=== PATIENT | male | born 1965 | race Caucasian/White ===

== ENCOUNTER 2023-10-15 10:33 | Emergency (ER) | payer BC, SELFPAY ==
[2023-10-15 10:43] VITALS: BP 139/89
--- NOTE | 2023-10-15 11:05 | ED.GENMED ---
History of Present Illness
<Emy Vasquez PA-C - Last Filed: 10/15/23 12:57>
General
Chief Complaint: DVT/Possible Blood Clot
Source: patient
Exam Limitations: none
Time Seen by Provider: 10/15/23 11:05
Nursing documentation reviewed up to this point in time: agreed with
Travel History
Have you had any contact with someone who has COVID-19?: No
Do you have any symptoms of coronavirus? Fever > 100 degrees, chills, cough, shortness of breath, sore throat, loss of taste or smell, muscle aches, or headache?: No
History of Present Illness
History of Present Illness:
This is a 58-year-old male with a past medical history of prediabetes, hypertension presenting emergency department today with right calf pain and redness. Patient states that this started a few days ago. Patient states that he first noticed it
when he noticed the pain when he was walking but than this morning, when he was showering, he looked down and noticed that his leg was red. Patient denies any fevers or chills, abdominal pain, nausea. Patient denies any recent long distance travel
but does commute to [place] every day for work. Patient denies previous history of blood clots. Patient denies any swelling, hx of smoking. Patient denies any exposure to any allergens�denies any shortness of breath, chest pain, dysphagia.
Past History
<Emy Vasquez PA-C - Last Filed: 10/15/23 12:57>
Past History
ED Past Medical History: GERD and Other (Pancreatitis, scoliosis); Negative HTN, Hypercholesterolemia or IDDM
ED Past Surgical History: Orthopedic (Pascual rods/scoliosis surgery)
Social History
Tobacco: Non-smoker
Alcohol: Occasional
Drug: None
Personal:
Living: with family
Employment: Employed
Review of Systems
<Emy Vasquez PA-C - Last Filed: 10/15/23 12:57>
Review of Systems
All Other Systems: ROS reviewed and negative except as documented in HPI and ROS
Phy Exam
<Emy Vasquez PA-C - Last Filed: 10/15/23 12:57>
Physical Exam
Physical Exam:
Vitals: Patient's vitals are stable, patient is afebrile
General: Patient is well appearing and in no acute distress; non-toxic
Skin: There is a erythematous macular rash extending from distal medial calf to the anterior aspect, it is hot to the touch
Head: Normocephalic, atraumatic
Eyes: Sclera non-icteric. EOMs intact.
Cardiac: Regular rate
Peripheral Vascular: Negative Homans' sign bilaterally, 2+ dorsalis pedis pulses bilaterally, no lower extremity swelling
Pulm: Normal respiratory effort
Musculoskeletal: No tenderness palpation of the bilateral lower extremities
Neuro: CN II-XII intact, no focal neurologic deficits.
Psychiatric: Appropriate mood and affect.
Course
<Emy Vasquez PA-C - Last Filed: 10/15/23 12:57>
Orders/Labs/Results
Orders:
Orders
10/15/23 11:12
US Periph Venous LOWER Ext RT Urgent
Comment:
Reason For Exam: right lower extremity swelling/edema
Vital Signs
Initial and Last Documented VS:
Initial Vital Signs
Temp Pulse Resp BP Pulse Ox
98.4 F 95 18 139/89 96
10/15/23 10:43 10/15/23 10:43 10/15/23 10:43 10/15/23 10:43 10/15/23 10:43
Last Documented Vital Signs
Temp Pulse Resp BP Pulse Ox
98.4 F 95 18 139/89 96
10/15/23 10:43 10/15/23 10:43 10/15/23 10:43 10/15/23 10:43 10/15/23 10:43
<Tyrone Tenorio, - Last Filed: 10/15/23 13:39>
Orders/Labs/Results
Orders:
Orders
10/15/23 11:12
US Periph Venous LOWER Ext RT Urgent
Comment:
Reason For Exam: right lower extremity swelling/edema
Vital Signs
Initial and Last Documented VS:
Initial Vital Signs
Temp Pulse Resp BP Pulse Ox
98.4 F 95 18 139/89 96
10/15/23 10:43 10/15/23 10:43 10/15/23 10:43 10/15/23 10:43 10/15/23 10:43
Last Documented Vital Signs
Temp Pulse Resp BP Pulse Ox
98.4 F 95 18 139/89 96
10/15/23 10:43 10/15/23 10:43 10/15/23 10:43 10/15/23 10:43 10/15/23 10:43
<Emy Vasquez PA-C - Last Filed: 10/15/23 12:57>
MDM/Problems Addressed
Differential Diagnosis Includes:
Differentials include cellulitis, erysipelas, DVT, contact dermatitis, acute arterial occlusion,
MDM/Problems Addressed:
Rate lower extremity rash and pain
Chronic conditions affecting care: HTN
Acute Exacerbation and/or Progression of Chronic Illness:
n/a
<Emy Vasquez PA-C - Last Filed: 10/15/23 12:57>
*Pulse Oximetry
Patient hypoxic: no
*Critical Care Note
Total Time (30-74mins, 75-104mins- exclusive of procedures): Not Applicable
Data Reviewed
Review of Other/Old Records Reveals: Records (Reviewed ER physician mentation from 06/22/2020)
Source: patient and records
Further Testing Considered But Not Given:
Considered labs however patient is well-appearing, his vitals are stable, he is afebrile, has no other associated symptoms
<Emy Vasquez PA-C - Last Filed: 10/15/23 12:57>
Patient Management
Escalation/DeEscalation of care consider admission/obs:
This is a 58-year-old male with a past medical history of prediabetes, hypertension presenting emergency department today with right calf pain and redness. Patient was originally seen by urgent care today but was sent to the emergency department
for an ultrasound. Ultrasound study here negative for DVT. History and physical exam consistent with cellulitis. Patient stable for discharge on course of Keflex. Return precautions given.
ED Attending Note
<Emy Vasquez PA-C - Last Filed: 10/15/23 12:57>
-
Portions of this chart may have been created with voice recognition software.� Occasional wrong word or��sound alike� substitutions may have occurred due to the inherent limitations of voice recognition software.
<Tyrone Tenorio DO - Last Filed: 10/15/23 13:39>
ED Attending Note
Patient seen and examined by attending physician: Yes
I performed a history and physical exam of patient and discussed management with resident, I reviewed resident's note and agree with documented findings and plan of care.: Yes
ED Attending Note:
I have reviewed and agree with history and treatment plan by Emy Vasquez. My exam revealed 58-year-old male with right lower leg erythema, suspicious for cellulitis. Do not suspect TEN. ultrasound negative for DVT. Will start on Keflex.
Discharge Plan
Departure
Patient Disposition: Home (Routine Discharge)
Date of Disposition: 10/15/23
Time of Disposition: 12:32
Patient with high blood pressure during this ER visit?: Yes
Condition: Good
Discharge Problem:
Cellulitis
Instructions: Cellulitis (Skin Infection), Adult (DC), BLOOD PRESSURE
Prescriptions:
New
cephalexin 500 mg capsule
500 mg PO Q6H 7 Days Qty: 28 0RF
No Action
duloxetine 60 MG capsule,delayed release(DR/EC)
60 mg PO DAILY
oxycodone-acetaminophen [Endocet] 1 EACH tablet
1 ea PO QIDPRN PRN (Reason: moderate pain) Qty: 14 0RF
Referrals:
Justice Luis, DO [Family Provider] -
Activity Restrictions/Additional Instructions:
Please keep skin clean and well moisturized.
Please return should your infection not start to improve within the coming days.
PLEASE RETURN TO THE EMERGENCY DEPARTMENT SHOULD YOU EXPERIENCE RAPID EXPANSION OF YOUR RASH, FEVERS OR CHILLS, CHEST PAIN, SHORTNESS OF BREATH, INCREASING PAIN, NAUSEA OR VOMITING.
Interventions
Interventions:
*Risk Screen - Suicide Last Done: 10/15/23 10:43
*General Assessment Last Done: 10/15/23 10:43
*Neglect/Abuse Screening Last Done: 10/15/23 10:43
ED- Fall Risk Assessment Last Done: 10/15/23 11:32
*ED COVID-19 Vaccine History Last Done: 10/15/23 10:43
*Nursing Disposition Last Done: 10/15/23 12:41
ED- Cardiac Assessment Last Done: 10/15/23 11:31
ED- Pulmonary Assessment Last Done: 10/15/23 11:31
ED-Peripheral Vascular Assessment Last Done: 10/15/23 11:31
ED-Skin Assessment Last Done: 10/15/23 11:31
Discharge Date and Time
Discharge Date/Time: 10/15/23 12:41
Print Language: JORDANIAN
== END 2023-10-15 12:41 | disposition home or self-care (01) ==
LOC: EMR 10:33
PROVIDERS: EMERGENCY PHYSICIAN Emergency Medicine; FAMILY PHYSICIAN Family Medicine
DX: L03.115 Cellulitis of right lower limb (principal); M79.661 Pain in right lower leg; R73.03 Prediabetes; I10 Essential (primary) hypertension; K21.9 Gastro-esophageal reflux disease without esophagitis; M41.9 Scoliosis, unspecified; I45.10 Unspecified right bundle-branch block
CPT/HCPCS: 99284; 93971

== ENCOUNTER 2024-06-30 06:29 | Day surgery (SDC) | payer BC, SELFPAY ==
[2024-06-30 11:12] VITALS: BMI 37.2
[2024-06-30 11:13] VITALS: BMI 37.2
[2024-06-30 11:15] LABS: Glucose - Point of Care 98 mg/dl (70-99)
[2024-06-30 11:16] VITALS: BP 122/73
[2024-06-30] MEDS: AKTEN OPHTHALMIC GEL 1 ML OPHTH (11:33)
[2024-06-30] MEDS: MYDRIACYL 1 DROP OPHTH (11:33)
[2024-06-30] MEDS: CYCLOGYL 1% EYE DROPS 1 DROP OPHTH (11:34)
[2024-06-30] MEDS: PRED FORTE 1% EYE DROPS 1 DROP OPHTH (11:34)
[2024-06-30] MEDS: NEO-SYNEPHRINE 2.5% OPH SOL. 1 DROP OPHTH (11:34)
[2024-06-30] MEDS: ALCAINE 0.5% EYE DROPS 1 DROP OPHTH (11:34)
[2024-06-30] MEDS: POLYTRIM OPHTHALMIC SOLUTION 1 DROP OPHTH (11:34)
[2024-06-30 14:00] VITALS: BP 107/69
== END 2024-06-30 14:28 | disposition home or self-care (01) ==
LOC: SDS 06:29
PROVIDERS: ATTENDING PHYSICIAN Ophthalmology
PROC: 08RK3JZ Replacement of Left Lens with Synthetic Substitute, Percutaneous Approach (ICD-10-PCS; 2024-06-30)
DX: H25.812 Combined forms of age-related cataract, left eye (principal)
CPT/HCPCS: 66984; 82962

== ENCOUNTER 2024-07-14 06:33 | Day surgery (SDC) | payer BC, SELFPAY ==
[2024-07-14 06:57] VITALS: BMI 36.3
[2024-07-14 06:58] VITALS: BMI 36.3
[2024-07-14 07:05] VITALS: BP 126/78
[2024-07-14] MEDS: ALCAINE 0.5% EYE DROPS 1 DROP OPHTH (07:20)
[2024-07-14] MEDS: PRED FORTE 1% EYE DROPS 1 DROP OPHTH (07:21)
[2024-07-14] MEDS: POLYTRIM OPHTHALMIC SOLUTION 1 DROP OPHTH (07:21)
[2024-07-14] MEDS: MYDRIACYL 1 DROP OPHTH (07:21)
[2024-07-14] MEDS: NEO-SYNEPHRINE 2.5% OPH SOL. 1 DROP OPHTH (07:22)
[2024-07-14] MEDS: CYCLOGYL 1% EYE DROPS 1 DROP OPHTH (07:22)
[2024-07-14] MEDS: ACUVAIL 1 DROPS OPHTH (07:23)
[2024-07-14] MEDS: AKTEN OPHTHALMIC GEL 1 ML OPHTH (07:23)
[2024-07-14 07:31] LABS: Glucose - Point of Care 116 mg/dl (70-99)
[2024-07-14 09:15] VITALS: BP 130/78
[2024-07-14 09:30] VITALS: BP 131/80
== END 2024-07-14 09:34 | disposition home or self-care (01) ==
LOC: SDS 06:33
PROVIDERS: ATTENDING PHYSICIAN Ophthalmology
PROC: 08RJ3JZ Replacement of Right Lens with Synthetic Substitute, Percutaneous Approach (ICD-10-PCS; 2024-07-14)
DX: H25.811 Combined forms of age-related cataract, right eye (principal)
CPT/HCPCS: 66984; 82962

== ENCOUNTER 2024-10-26 18:08 | Inpatient (IN) | payer BC, SELFPAY ==
[2024-10-26] VITALS (14 sets, daily range): BP systolic 131–168; BP diastolic 78–99; PULSE 80; BMI 37.5
[2024-10-26 10:47] LABS: Glucose - Point of Care 138 mg/dl (70-99)
[2024-10-26 11:30] LABS: % Basophils 0.7 % (0-2); % Eosinophils 5.2 % (0-6); % Immature Granulocytes 0.3 % (0-0.5); % Lymphocytes 21.7 % (20.5-51.1); % Monocytes 12.1 % (1.7-9.3); Absolute Basophils 0.1 10^3/uL (0-0.2); Absolute Eosinophils 0.5 10^3/uL (0-0.7); Absolute Lymphocytes 1.9 10^3/uL (1.2-3.4); Absolute Neutrophils 5.2 10^3/uL (1.4-6.5); Hemoglobin 15.5 g/dL (13.0-18.0); Mean Corp Hgb Conc. 33.7 g/dL (33.0-37.0); Mean Corpuscular Hgb 29.9 pg (27.0-31.0); Mean Corpuscular Volume 88.6 fL (80.0-94.0); Mean Platelet Volume 10.5 fL (7.4-10.4); Nucleated Red Blood Cells % 0 % (-); Platelet Count 152 10^3/uL (130-400); Red Blood Cell Count 5.19 10^6/uL (4.70-6.10); Red Cell Dist. Width 13.1 % (11.5-14.5); White Blood Cell Count 8.6 10^3/uL (4.8-10.8)
--- NOTE | 2024-10-26 11:39 | ED.GENMED ---
History of Present Illness
General
Chief Complaint: Dizziness
Source: patient
Exam Limitations: none
Time Seen by Provider: 10/26/24 11:37
Nursing documentation reviewed up to this point in time: agreed with
History of Present Illness
History of Present Illness:
Patient is a 59-year-old male who presents to the ER with dizziness. Patient reports he was sitting at his desk prior to arrival when he suddenly felt extremely dizzy develop sweats and started vomiting. He does feel slightly improved now but
still feels off and dizzy. He had a similar episode about a week and a half ago while sitting in his car driving and started to suddenly feel very dizzy and off balance that resolved very weakly.
Patient denies any associated headache recent trauma, chiropractor manipulation or neck pain.
He does report he recently got over URI/cold last week.
He had no associated chest pain/shortness of breath.
Past History
Past History
ED Past Medical History: GERD and Other (Pancreatitis, scoliosis); Negative HTN, Hypercholesterolemia or IDDM
ED Past Surgical History: Orthopedic (Pascual rods/scoliosis surgery)
Social History
Tobacco: Non-smoker
Alcohol: Occasional
Drug: None
Personal:
Living: with family
Employment: Employed
Review of Systems
Review of Systems
Allergies reviewed?: Yes
All Other Systems: ROS reviewed and negative except as documented in HPI and ROS
Constitutional: Reports no symptoms; Denies fever, fatigue or chills
Respiratory: Reports no symptoms
Cardiac: Reports no symptoms
ABD/GI: Reports nausea and vomiting
: Reports no symptoms
Musculoskeletal: Reports no symptoms; Denies neck pain
Skin: Reports no symptoms
Neurological: Reports dizzy; Denies headache, weakness or numbness
Psychiatric: Reports no symptoms
Phy Exam
General Physical Exam
General Presentation: no apparent distress
General age: appears stated age
General Skin: warm and dry
General Habitus: normal
General Mental: alert
General Hydration: appears well hydrated
ENT Exam
ENT Exam: EOMI, neck supple and other (+ right sided horizontal nystagmus)
Cardiovascular Exam
Cardiovascular Exam: regular rate/rhythm, no murmur and normal peripheral pulses
Pulmonary Exam
Pulmonary Exam: lungs clear and no respiratory distress
Neurological Exam
Neurological Exam: alert, oriented x3, no motor deficits, no sensory deficits and speech normal
Cerebellar
Cerebellar Function: normal finger to nose
Musculoskeletal Exam
Musculoskeletal Exam: full ROM
Skin Exam
Skin Exam: normal color and warm/dry
Psychiatric Exam
Psychiatric Exam: normal mood/affect
Course
Orders/Labs/Results
Orders:
Orders
10/26/24 08:30
Insulin Aspart Corrective Low [Novolog Flexpen-Low Resistance] See Protocol SC AC
10/26/24 10:37
ECG [Electrocardiogram (*1)] Urgent
Reason for Study: Vertigo / Dizzy
EKG- Treatment ONCE
10/26/24 11:16
CBC/With Diff [Complete Blood Count/With Diff] Urgent
CMP [Comprehensive Metabolic Panel] Urgent
Lipase Urgent
10/26/24 11:49
CT Head W/o Iv Contrast Urgent
Comment:
Reason For Exam: dizziness
Ondansetron Injectable [Zofran] 4 mg IV NOW STA
10/26/24 11:59
Physical Therapy Consult [Pt Eval And Treat] Urgent
Activity Level: Ambulate
10/26/24 12:55
Meclizine [Antivert] 25 mg PO NOW STA
10/26/24 14:04
diazePAM [Valium Injection] 2 mg IV NOW STA
10/26/24 15:21
MethylPREDNISolone PF [Solu-Medrol Pf] 250 mg IV NOW STA
10/26/24 17:26
Admit/Transfer Patient As Directed
Co-Sign Provider:
Level of Care: Inpatient admission
Assign to:: Telemetry
Physician / Group: Hospitalist
Diagnosis: Diziness
Reason for Telemetry: CVA/TIA
Date to Stop Telemetry: 10/29/24
Time to Stop Telemetry: 11:00
Reason for Hospitalization: Dizziness
Expected length of stay greater than two midnights?: Yes
ELOS- Estimated Length of Stay in days: 2
I certify the patient meets the requirements for IP care: Yes
PRN Pain Medication Management As Directed
May give lesser potent ordered pain med per pt: Yes
preference::
Protocol:: Medication orders for pain may be administered in a
manner that supports deferring to patient preference
when the pt is:
- Requesting an ordered lesser potent pain medication.
Least to most potent pain medications are defined
as: acetaminophen < NSAID < tramadol < opioids
(morphine, oxycodone, hydromorphone).
- Requesting a lesser dose of the same medication IF
ORDERED.
- Requesting a less intrusive route of administration
if both routes are prescribed by the provider (PO <
IV).
10/26/24 17:27
Code Status As Directed
Resuscitation Status: Full Code
10/26/24 18:30
Acetaminophen [Tylenol/Feverall] 650 mg RECTAL Q4HPRN PRN
Acetaminophen [Tylenol] 650 mg PO Q4HPRN PRN
Atorvastatin [Lipitor] 80 mg PO QPM
Dextrose 50%-Water [Dextrose 50% Syringe] 12.5 grams IV [id number] PRN
Gabapentin [Neurontin] 300 mg PO QPM
Glucagon [GlucaGen] 1 mg IM PRN PRN
Magnesium Hydroxide [Milk of Magnesia] 30 ml PO BIDPRN PRN
10/26/24 18:30
Case Management Consult ONCE
Case Management Consult: Discharge Planning
Comment: stroke/tia
DIETARY IP CONSULT Routine
Reason for Consult: stroke/TIA
NEUROLOGY CONSULT Routine
Consulting Provider: Gabriel Israel
Was physician already notified: Yes
Reason for consult: dizziness
Fire Protection Specialist Urgent
[place] mra [MA [place]] Routine
Comment:
Reason For Exam: dizziness
Recent pill cam endoscopy?: No
MRI Brain [MR Brain Without Contrast] Routine
Comment:
Reason For Exam: dizziness
Recent pill cam endoscopy?: No
Neck Without Contrast MRA [MA Neck Without Contrast] Routine
Comment:
Reason For Exam: dizziness
Recent pill cam endoscopy?: No
Activity As Directed
Activity Level: Out of Bed-Early Mobility
Bedside Glucose Monitoring As Directed
Frequency: AC&HS
Additional Instructions:: Change to q6h if pt on TPN, tube feeding or not eating
NIH Stroke Scale As Directed
Directions: Per protocol
Comment: every shift and with any change in condition or mental status
Neurological Checks As Directed
Frequency: q4h
Additional Instructions:: q4h x 24h upon admission to the floor, then qshift & with any change in condition
and mental status
Patient Education As Directed
Type: Stroke education packet
Comment: provide to patient and family
Pneumatic Compression Sleeves As Directed
Type: Knee high
Swallow Screening CVA/TIA ONLY As Directed
Comment: NPO until swallowing screening completed
If patient FAILS swallow screening:: NPO, Speech Therapy consult, Aspiration Precautions
If patient PASSES swallow screening, diet:: 1999/ 17 CHO Diabetic
Above diet order entered?: Yes- passed screening
Vital Signs As Directed
Frequency: Per unit guidelines
Ot Eval And Treat Routine
Pt Eval And Treat Routine
Activity Level: Out of Bed-Early Mobility
Speech Therapy Eval & Treat Routine
DX Deep Vein Thrombosis Video Routine
10/26/24 20:00
Ondansetron Injectable [Zofran] 4 mg IV Q8HPRN PRN
10/26/24 21:00
Meclizine [Antivert] 25 mg PO Q8HPRN PRN
10/27/24 06:24
Cardiovascular Evaluation IN AM
Complete Blood Count/With Diff IN AM
Comprehensive Metabolic Panel IN AM
Glycohemoglobin (HgbA1c) IN AM
Magnesium IN AM
TSH Reflex To Free T4 IN AM
10/27/24 08:00
Aspirin Chewable [Low Strength Aspirin] 81 mg PO DAILY
Duloxetine Delayed Release [Cymbalta Delayed Release] 60 mg PO DAILY
Lisinopril [Zestril] 20 mg PO DAILY
Prednisone [Deltasone] 50 mg PO DAILY
10/29/24 11:00
DC Protocol for Telemetry ONCE
Abnormal Lab Results
10/26/24 10/26/24
10:46 11:16
MPV 10.5 H fL
(7.4-10.4)
Absolute Monos (auto) 1.0 H 10^3/uL
(0.1-0.6)
Monocytes % 12.1 H %
(1.7-9.3)
Chloride 108 H mmol/L
(98-107)
Glucose 173 H mg/dl
(70-99)
POC Glucose 138 H mg/dl
(70-99)
10/26/24 11:16
10/26/24 11:16
Vital Signs
Initial and Last Documented VS:
Initial Vital Signs
Temp Pulse Resp BP Pulse Ox
97.6 F 70 20 165/99 95
10/26/24 10:49 10/26/24 10:49 10/26/24 10:49 10/26/24 10:49 10/26/24 10:49
Last Documented Vital Signs
Temp Pulse Resp BP Pulse Ox
98 F 99 17 124/79 95
10/27/24 07:10 10/27/24 07:10 10/27/24 07:10 10/27/24 07:10 10/27/24 07:10
Electric Motor Winders Assembler consulted with Physician
Electric Motor Winders Assembler consulted with physician?: Yes
Name of Physician Consulted: Noh
MDM/Problems Addressed
Differential Diagnosis Includes:
Not limited to benign positional vertigo, neuritis, cerebral infarct
MDM/Problems Addressed:
Symptoms are consistent with vestibular neuritis. He has horizontal nystagmus to the right. Patient recently had viral syndrome. Patient has no associated headache or neck pain no recent trauma chiropractic manipulation. No prior history of
stroke. He is neurologically intact. Normal strength bilateral upper lower extremities no obvious facial droop normal finger-nose.
Patient felt better upon coming to the ER prior to being medicated and prior to being by physical therapy, however still had mild symptoms he was seen by PT who does feel that this is likely vestibular neuritis and given a dose of Medlizine and
zofran .
pt felt better at rest however on reevaluation patient very unsteady and was unable to walk on his own. Would recommend admission for further monitoring , will give an IV dose of valium. Case discussed ED attending. Case discussed with neurology
who will see pt. case discussed admitting hospitalist.
Chronic conditions affecting care:
Hyperlipidemia hypertension
*Radiology
Radiology exam reviewed: radiology read reviewed
*Pulse Oximetry
Patient hypoxic: no
*EKG
Interpreted by ED Provider?: Yes
Heart Rate: 74
Rate: normal
Rhythm: sinus
*Critical Care Note
Total Time (30-74mins, 75-104mins- exclusive of procedures): Not Applicable
Patient Management
Discussion with other providers: Test Tube Maker (Dr Israel )
ED Attending Note
-
Portions of this chart may have been created with voice recognition software.� Occasional wrong word or��sound alike� substitutions may have occurred due to the inherent limitations of voice recognition software.
Discharge Plan
Departure
Patient Disposition: Admit
Date of Disposition: 10/26/24
Time of Disposition: 14:46
Admit to: Med/Surg
Admit to doctor: hospitalist
Presentation/result/management discussed w/ accepting MD/DO: Hospitalist
Patient with high blood pressure during this ER visit?: Yes
Condition: Fair
Covid-19: Not Applicable
Discharge Problem:
intractable dizziness
Interventions
Interventions:
*Risk Screen - Suicide Last Done: 10/26/24 10:49
*General Assessment Last Done: 10/26/24 10:49
*Neglect/Abuse Screening Last Done: 10/26/24 11:05
*ED- Fall Risk Assessment Last Done: 10/26/24 11:05
*ED COVID-19 Vaccine History Last Done: 10/26/24 11:05
*Nursing Disposition Last Done: 10/26/24 18:18
ED- Neurological Assessment Last Done: 10/26/24 11:05
ED Swallowing Screen Last Done: 10/26/24 11:05
Discharge Date and Time
Discharge Date/Time: 10/26/24 18:18
[2024-10-26 11:50] LABS: ALT (SGPT) 17 U/L (0-50); AST (SGOT) 22 U/L (17-59); Albumin 4.2 g/dl (3.5-5.0); Alkaline Phosphatase 65 U/L (38-126); Blood Urea Nitrogen 19 mg/dl (9-20); Calcium 8.5 mg/dl (8.4-10.2); Carbon Dioxide 23 mmol/L (22-30); Chloride 108 mmol/L (98-107); Glucose 173 mg/dl (70-99); Lipase 180 U/L (23-300); Potassium 4.7 mmol/L (3.5-5.1); Sodium 139 mmol/L (135-145); Total Bilirubin 0.6 mg/dl (0.2-1.3); eGFR > 60.00
[2024-10-26] MEDS: ZOFRAN 4 MG IV (12:11)
[2024-10-26] MEDS: ANTIVERT 25 MG PO (13:27)
[2024-10-26] MEDS: VALIUM INJECTION 2 MG IV (14:39)
--- NOTE | 2024-10-26 14:46 | HPS.HSE ---
Family Physician
-
Family Physician: Sylvester Alexis, DO
Chief Complaint
-
dizziness
History of Present Illness
59yo M with PMHx of anxiety, neuropathy, HTN HLD and DM started to feel diaphoretic and dizzy at work. Came to ED as episode lated too long and patient still has dizziness. ED noted nistagmus to the R on exam. CT head without acute findings. ED
discussed with neurologist, attempted IV steroids, but still patient with poor ambulation, so patient will have to be admitted for symptom mgmt and additional w/u
Medical History
Past Medical History
Past Medical History: Reports Other
Additional Past Medical History:
see HPI
Past Surgical History: Reports None
Social History
Tobacco: Non-smoker
Alcohol: Occasional
Drug: None
Family History
Family History: Not pertinent
Allergies / Home Medications
Allergies reflects when Allergies were last updated in [facility].
Home Medications with original date entered in [facility]
Allergy/Medication List:
Allergies
Allergy/AdvReac Type Severity Reaction Status Date / Time
No Known Allergies Allergy Verified 07/14/24 06:56
Home Medications
duloxetine 60 mg capsule,delayed release 60 mg PO DAILY 02/02/13
gabapentin 300 mg capsule 300 mg PO QPM 06/28/24
lisinopril 20 mg tablet 20 mg PO DAILY 06/28/24
rosuvastatin 5 mg tablet (Crestor) 5 mg PO QPM 06/28/24
semaglutide 1 mg/dose (4 mg/3 mL) subcutaneous pen injector (Ozempic) 1 mg SC TU 06/28/24
Review of Systems
-
A 12 point ROS was completed and negative except as noted: Yes
Neurological: Reports See HPI
Physical Exam
Vital Signs
Vital Signs
Temp Pulse Resp BP Pulse Ox
97.6 F 71 14 131/78 98
10/26/24 10:49 10/26/24 14:30 10/26/24 14:30 10/26/24 13:28 10/26/24 14:15
Physical Exam
General: Well Developed, Well Nourished and No Apparent Distress
HEENT: NormoCephalic, Anicteric and Moist mucous membranes
Respiratory: Clear; No Wheezes or Rhonchi
Cardiac: S1/S2 and Regular Rhythm; No Tachycardia
GI: Soft, Non Tender, Non Distended and Normal Bowel Sounds
Musculoskeletal: No Clubbing, No Cyanosis and No Edema
Skin: Warm; No Rash or Jaundice
Neuro: Awake, Alert, Oriented, AO x 3, No Motor Deficits and Other (R predominant nystagmus)
Psych: Calm
Laboratory Results
-
10/26/24 11:16
10/26/24 11:16
Laboratory Results
Total Bilirubin 0.6 mg/dl (0.2-1.3) 10/26/24 11:16
AST 22 U/L (17-59) 10/26/24 11:16
ALT 17 U/L (0-50) 10/26/24 11:16
Alkaline Phosphatase 65 U/L (38-126) 10/26/24 11:16
Lipase 180 U/L (23-300) 10/26/24 11:16
Data Reviewed
-
CT Scan: Report Reviewed by me
Lab Data: Labs Reviewed by me
Impression/Plan
-
A/P:
#Dizziness, concern for TIA/CVA/Vestibular neuritis
Prednisone
PT/OT
Zofran
Meclizine
Neurology consult
MRA neck and head
MRI brain
ASA, statin (high potency)
check TSH, HgbAc, Lipids
Neuro checks
keep BP <180/105
#DM type 2 with neuropathy
cont meds
InsulinSS, Accuchecks and DM diet
#HLD
#Essential HTN
cont home meds, except change in statin
DVT ppx SCDs
full code
I have spent at least 78min admitting the patient
[2024-10-26] MEDS: SOLU-MEDROL PF 250 MG IV (15:27)
--- NOTE | 2024-10-26 18:36 | PTCARENOTE ---
[place] [id number] awake alert oriented. c/o some dizzyness with ambulation, goes away at rest. Call ponce in reach.
--- NOTE | 2024-10-26 19:47 | CON.NEURO ---
Neuro Assessment/Plan
Assessment
vestibular neuritis left ear (constant right beating nystagmus regardless of gaze deviation)
the left VN constantly drags eyes to the left, and nystagmus represents cortical correction
the HINTS exam was shown to be superior to MRI in differentiating central vs peripheral vertigo
Rx Solumedrol 250 daily given diabetes in hospital, complete 5 day course prednisone 50/day
d/c when able to ambulate
Consultation
Order
Date of Consultation: 10/26/24
Requesting Provider: Rahel Garrett
Reason for Consult: dizziness
Subjective/Objective
Subjective Data
Date of Service: October 26, 2024
59yo M with PMHx of anxiety, neuropathy, HTN HLD and DM started to feel diaphoretic and dizzy at work today. symptoms persist. transient episode of dizziness while driving last week.
He describes vertigo, does not resolve with staying still. Symptoms worsen with right gaze, and better with left gaze
no tinnitus, ear pressure, diplopia, vision loss, weakness, numbness.
Objective Data
Vital Signs
Temp Pulse Resp BP Pulse Ox
36.4 C 85 14 142/84 93
10/26/24 19:08 10/26/24 19:08 10/26/24 19:08 10/26/24 19:08 10/26/24 19:08
Lab Results
10/26/24 11:16
10/26/24 11:16
Sodium 139 mmol/L (135-145) 10/26/24 11:16
Potassium 4.7 mmol/L (3.5-5.1) 10/26/24 11:16
BUN 19 mg/dl (9-20) 10/26/24 11:16
Glucose 173 mg/dl (70-99) H 10/26/24 11:16
Calcium 8.5 mg/dl (8.4-10.2) 10/26/24 11:16
Patient Allergies
No Known Allergies Allergy (Verified 07/14/24 06:56)
Physical Exam
-
AAOx3 speech clear language intact
Constant right beating nystagmus independent of gaze direction
no skew deviation
nonfocal
Medications
-
Active Medications
Generic Name Dose Route Start Last Admin
Trade Name Freq PRN Reason Stop Dose Admin
Acetaminophen 650 mg 10/26/24 18:30
Acetaminophen 650 Mg Rectal Suppository RECTAL 11/23/24 18:29
Q4HPRN PRN
SANCHEZ, mild pain, or temp >100.4F
Acetaminophen 650 mg 10/26/24 18:30
Acetaminophen 325 Mg Tablet PO 11/23/24 18:29
Q4HPRN PRN
SANCHEZ, mild pain, or temp >100.4F
Aspirin 81 mg 10/27/24 08:00
Aspirin 81 Mg Chewable Tablet PO 11/24/24 07:59
DAILY SARAH
Atorvastatin Calcium 80 mg 10/26/24 18:30
Atorvastatin (Lipitor) 80 Mg Tablet PO 11/23/24 18:29
QPM SARAH
Dextrose 12.5 grams 10/26/24 18:30
Dextrose 50% (0.5 Grams/Ml) 50 Ml Syringe IV 11/23/24 18:29
[id number] PRN
hypoglycemia
Protocol
Duloxetine HCl 60 mg 10/27/24 08:00
Duloxetine Delayed Release 60 Mg Capsule PO 11/24/24 07:59
DAILY SARAH
Gabapentin 300 mg 10/26/24 18:30
Gabapentin 300 Mg Capsule PO 11/23/24 18:29
QPM SARAH
Glucagon 1 mg 10/26/24 18:30
Glucagon 1 Mg Vial IM 11/23/24 18:29
PRN PRN
hypoglycemia
Protocol
Insulin Aspart 0 units 10/26/24 18:30
Insulin Aspart Low Resistance 300 Units/3 Ml Pen.Injctr SC 11/23/24 18:29
AC SARAH
Protocol
Lisinopril 20 mg 10/27/24 08:00
Lisinopril 20 Mg Tablet PO 11/24/24 07:59
DAILY SARAH
Magnesium Hydroxide 30 ml 10/26/24 18:30
Milk Of Magnesia 30 Ml Cup PO 11/23/24 18:29
BIDPRN PRN
constipation
Meclizine HCl 25 mg 10/26/24 21:00
Meclizine 25 Mg Tablet PO 11/23/24 20:59
Q8HPRN PRN
Vertigo, dizziness
Ondansetron HCl 4 mg 10/26/24 20:00
Ondansetron 4 Mg/2 Ml Vial IV 11/23/24 19:59
Q8HPRN PRN
NAUSEA/VOMITING
Prednisone 50 mg 10/27/24 08:00
Prednisone 50 Mg Tablet PO 10/31/24 07:59
DAILY SARAH
Sodium Chloride 0 flush 10/26/24 19:00
Sodium Chloride 0.9% (Flush) Syringe IV 11/23/24 18:59
PER PROTOCOL SARAH
Home Medications
�Medication �Instructions �Recorded
duloxetine 60 mg capsule,delayed 60 mg PO DAILY 02/02/13
release
gabapentin 300 mg capsule 300 mg PO QPM 06/28/24
lisinopril 20 mg tablet 20 mg PO DAILY 06/28/24
rosuvastatin 5 mg tablet (Crestor) 5 mg PO QPM 06/28/24
semaglutide 1 mg/dose (4 mg/3 mL) 1 mg SC TU 06/28/24
subcutaneous pen injector (Ozempic)
[2024-10-26] MEDS: NEURONTIN 300 MG PO (22:23)
[2024-10-26] MEDS: LIPITOR 80 MG PO (22:23)
[2024-10-26 22:40] LABS: Glucose - Point of Care 162 mg/dl (70-99)
[2024-10-27 03:16] VITALS: BP 143/87
[2024-10-27 07:10] VITALS: BP 124/79
[2024-10-27 07:31] LABS: % Basophils 0.1 % (0-2); % Immature Granulocytes 0.3 % (0-0.5); % Lymphocytes 8.4 % (20.5-51.1); % Monocytes 1.5 % (1.7-9.3); % Neutrophils 89.7 % (42.2-75.2); Absolute Monocytes 0.2 10^3/uL (0.1-0.6); Absolute Neutrophils 10.9 10^3/uL (1.4-6.5); Hematocrit 47.4 % (39.0-52.0); Hemoglobin 15.8 g/dL (13.0-18.0); Mean Corp Hgb Conc. 33.3 g/dL (33.0-37.0); Mean Corpuscular Hgb 29.6 pg (27.0-31.0); Mean Corpuscular Volume 88.9 fL (80.0-94.0); Mean Platelet Volume 10.8 fL (7.4-10.4); Nucleated Red Blood Cells % 0 % (-); Platelet Count 184 10^3/uL (130-400); Red Blood Cell Count 5.33 10^6/uL (4.70-6.10); White Blood Cell Count 12.1 10^3/uL (4.8-10.8)
[2024-10-27 07:32] LABS: Glucose - Point of Care 134 mg/dl (70-99)
[2024-10-27 07:58] LABS: ALT (SGPT) 17 U/L (0-50); AST (SGOT) 23 U/L (17-59); Albumin 4.2 g/dl (3.5-5.0); Alkaline Phosphatase 60 U/L (38-126); Blood Urea Nitrogen 22 mg/dl (9-20); Carbon Dioxide 25 mmol/L (22-30); Chloride 108 mmol/L (98-107); Estimated Creatinine Clearance > 125 ml/min; Glucose 137 mg/dl (70-99); HDL Cholesterol 57 mg/dl; LDL Cholesterol, Calculated 96 mg/dl; Magnesium 2.3 mg/dl (1.6-2.3); Potassium 4.8 mmol/L (3.5-5.1); Sodium 143 mmol/L (135-145); Total Bilirubin 0.5 mg/dl (0.2-1.3); Total Cholesterol 164 mg/dl (50-199); Total Protein 6.9 g/dl (6.3-8.2); Triglyceride 57 mg/dl (10-149); Very Low Density Lipoprotein 11 mg/dl (0-30); eGFR > 60.00
[2024-10-27] MEDS: DELTASONE 50 MG PO (08:19)
[2024-10-27] MEDS: CYMBALTA DELAYED RELEASE 60 MG PO (08:19)
[2024-10-27] MEDS: ZESTRIL 20 MG PO (08:20)
[2024-10-27] MEDS: LOW STRENGTH ASPIRIN 81 MG PO (08:20)
[2024-10-27 08:24] LABS: Glycohemoglobin (HgbA1c) 5.7 % (4.0-5.6)
[2024-10-27 08:44] LABS: Free T4 0.98 ng/dl (0.78-2.19)
[2024-10-27 10:00] VITALS: BP 154/97; PULSE 97; O2SAT 96
[2024-10-27 10:04] VITALS: BP 124/74; PULSE 74
--- NOTE | 2024-10-27 10:04 | PTOTSP ---
pt currently requires no assistance to complete simple ADLs, functional transfers, ambulation. pt reports no dizziness and feeling 90-95% better than previous day. no acute OT needs identified at this time, will sign off.
[2024-10-27 11:00] VITALS: BP 134/74
--- NOTE | 2024-10-27 11:24 | PTOTSP ---
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
Per chart passed swallow screen, NIH=0, neurology suspects vestibular neuritis, MRI brain negative for stroke. Speech clear and language intact for neurology. Dysphagia and speech/language evaluation not appropriate at this time. Please reconsult
as needed.
[2024-10-27 13:08] LABS: Glucose - Point of Care 128 mg/dl (70-99)
--- NOTE | 2024-10-27 14:44 | CARDSERVLU ---
Echocardiogram with Lumason completed after protocol screening completed. Allergies verified.
Patent IV site: __R AC___
IV site flushed with 0.9% NaCl pre and post administration.
Diluted bolus method utilized to enhance visualization of ventricular lorenzana.
Total volume given: __2.5__ mL
Patient tolerated all procedures well without complications.
[2024-10-27 15:00] VITALS: BP 131/68
--- NOTE | 2024-10-27 15:31 | W.DCSUMMARY ---
Discharge Summary
Discharge Data
Date of Admission: 10/26/24
Date of Discharge: 10/27/24
-
Pending Results: No
Hospital Course
59yo M with PMHx of anxiety, neuropathy, HTN HLD and DM
Presented with a episode of unsteadiness while like prolonged seasickness. Head CT without acute findings. Neurology consulted. Recommended IV steroids for likely vestibular neuritis. Unfortunately, symptoms ongoing therefore admitted MRI brain
head and neck were obtained. See report below. Eventually symptomatology resolved. Discharged home on 50 mg prednisone for additional 5 more days. Evaluated by physical therapy and recommended to proceed to vestibular rehab if symptoms persist.
Outpatient PCP follow-up
CT Brain
IMPRESSION:
No evidence of acute intracranial abnormality.
MRI Brain
IMPRESSION:
No acute intracranial abnormality.
MRI Head
IMPRESSION:
Normal MRA of the [place].
MRI Neck
IMPRESSION:
Normal noncontrast MRA of the neck.
Seen and examined on day of discharge which is October 27, 2024. No new complaints. No acute overnight events.
Sitting in bedside chair working on his computer. Complete resolution of dizziness and/unsteadiness.
No chest pain chest pressure shortness of breath fevers chills numbness tingling loss of sensations
NAD
Scleral Anicteric
MMM
No JVD
CTABL
RRR, S1/S2
Soft, NT, ND, BS+
Warm, Dry
AAOx3
Calm
More than 30 minutes spent in discharge including
Final examination of the patient
Summarizing hospital stay
Instructions for continuing care to all relevant caregivers
Preparation of discharge records, prescriptions, and referral forms
Total time spent (in minutes): 33
Discharge Plan
-
Patient Disposition: Home (Routine Discharge)
Discharge Diagnosis/Procedures: vestibular Neuritis
Diet: As tolerated
Activity: As tolerated
Activity Restrictions/Additional Instructions:
Presented with a episode of unsteadiness while like prolonged seasickness. Head CT without acute findings. Neurology consulted. Recommended IV steroids for likely vestibular neuritis. Unfortunately, symptoms ongoing therefore admitted MRI brain
head and neck were obtained. See report below. Eventually symptomatology resolved. Discharged home on 50 mg prednisone for additional 5 more days. Evaluated by physical therapy and recommended to proceed to vestibular rehab if symptoms persist.
Outpatient PCP follow-up
CT Brain
IMPRESSION:
No evidence of acute intracranial abnormality.
MRI Brain
IMPRESSION:
No acute intracranial abnormality.
MRI Head
IMPRESSION:
Normal MRA of the [place].
MRI Neck
IMPRESSION:
Normal noncontrast MRA of the neck.
Referrals:
Sylvester Alexis DO [Family Provider, Family Practice]
Prescriptions:
New
meclizine 25 mg Tablet
25 mg PO Q8HPRN PRN (Reason: Vertigo, dizziness) Qty: 10 0RF
prednisone 50 mg Tablet
50 mg PO DAILY 5 Days Qty: 5 0RF
aspirin 81 mg Tablet,Chewable
81 mg PO DAILY Qty: 30 0RF
Continued
duloxetine 60 MG capsule,delayed release(DR/EC)
60 mg PO DAILY
lisinopril 20 mg tablet
20 mg PO DAILY
gabapentin 300 mg capsule
300 mg PO QPM
rosuvastatin [Crestor] 5 mg Tablet
5 mg PO QPM
Ozempic 1 mg/dose (4 mg/3 mL) Pen Injector
1 mg SC TU
Discharge Orders:
Discharge Patient (As Directed); Ordered 10/27/24
Ordered By: Bishnu Sampson
Discharge Date and Time
Print Language: CZECH
--- NOTE | 2024-10-27 15:53 | CM ---
Patient for d/c today. Initial assessment completed. Patient is a 59yo M with PMHx of anxiety, neuropathy, HTN HLD and DM started to feel diaphoretic and dizzy.
Patient resides w/ spouse, 2 adult sons and [id number] in a [facility], 2 steps to enter. Patient is independent in all areas, no DME. No SNF/HC hx reported.
Address, point of contact and insurance verified
PCP: Sylvester Alexis
Pharmacy: [facility]
Therapy rec OP vestibular therapy
Plan: Home, OP therapy
--- NOTE | 2024-10-28 09:04 | PN.CDI ---
CDI
- -
CDI:
Physician Documentation Request
Admit Date: 10/26/24 18:08
Dear Doctor Adrián,
Please review the following and provide your response in the progress notes.
Clinical Indicators:
The diagnosis of bifascicular block was included in the signed EKG 10/27
Please indicate in your progress notes if you are in agreement that the above diagnosis is valid for this patient:
____ - bifascicular block is a valid diagnosis (Please include it in your progress notes)
____ - bifascicular block is not a valid diagnosis for this patient
____ - Other
Use of terms such as suspected, likely, concern for, or probable are acceptable for a diagnosis that is being evaluated, monitored or treated as if it exists and can be coded in the inpatient setting, when documented at the time of discharge.
Thank you,
Destiny Farley RN, BSN
CDI Specialist
tiger text
Please use your independent medical judgment in providing your response.
== END 2024-10-27 16:34 | disposition home or self-care (01) | DRG 156 ==
LOC: 4 WEST ACU 18:08
PROVIDERS: Emergency Medicine; ADMITTING PHYSICIAN Internal Medicine; ATTENDING PHYSICIAN Hospitalist; CONSULT PHYSICIAN Psychiatry & Neurology Clinical Neurophysiology; EMERGENCY PHYSICIAN Emergency Medicine; FAMILY PHYSICIAN Family Medicine
DX: H93.3X2 Disorders of left acoustic nerve (principal); H55.09 Other forms of nystagmus; E78.00 Pure hypercholesterolemia, unspecified; F41.9 Anxiety disorder, unspecified; G62.9 Polyneuropathy, unspecified; I11.9 Hypertensive heart disease without heart failure; E11.40 Type 2 diabetes mellitus with diabetic neuropathy, unspecified; K21.9 Gastro-esophageal reflux disease without esophagitis; M41.9 Scoliosis, unspecified; Z79.85 Long-term (current) use of injectable non-insulin antidiabetic drugs
CPT/HCPCS: 70450; 70544; 70547; 70551; 80053; 80061; 82962; 83036; 83690; 83735; 84439; 84443; 85025; 93005; 93306; 96374; 96375; 97112; 97116; 97165; 99285; Q9950